=== PATIENT | female | born 1965 ===

== ENCOUNTER 2018-01-02 15:17 | Emergency (ER) | payer SELFPAY ==
[2018-01-02 15:29] VITALS: BMI 26.9
[2018-01-02 15:31] VITALS: BP 118/78; PULSE 72; RESP 17; TEMP 98.8; O2SAT 98
--- NOTE | 2018-01-02 16:11 | C.PDOC ---
History Of Present Illness <FranklynPikny Denton - Last Filed: 01/02/18 17:35> <Vin Alvarez - Last Filed: 01/03/18 00:06> PGY-[address] Alvarez. Patient is a 52 year old female with PMHx of gastritis and chronic gastritis who presents to ED for L rib pain and abdominal pain. Patient states L rib pain is described "muscle inflammation", rated 9/10 and worsens with movement. 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 Treatment with advil mildly improves pain. Patient also complains of constant burning pain to epigastrium for the past 2 weeks. Pain is worst upon awakening in the morning. Patient takes protonix 40mg daily and omeprazole 20mg as needed, which provided no improvement of symptoms. Patient denies trauma, shortness of breath, cough, chest pain, fever, chills, dysuria, urinary frequency, nausea, and diarrhea. ( Pinky Estes P) <Pinky Estes - Last Filed: 01/02/18 17:35> <Vin Alvarez - Last Filed: 01/03/18 00:06> Time Seen by Provider: 01/02/18 15:44 Chief Complaint (Nursing): Abdominal Pain Past Medical History Family History: States: Unknown Family Hx <Pinky Estes - Last Filed: 01/02/18 17:35> - Medical History PMH: Gastritis - Social History Hx Alcohol Use: Yes Hx Substance Use: No <Vin Alvarez - Last Filed: 01/03/18 00:06> Vital Signs: Last Vital Signs Temp 98.8 F 01/02/18 15:30 Pulse 72 01/02/18 15:30 Resp 17 01/02/18 15:30 BP 118/78 01/02/18 15:30 Pulse Ox 98 01/02/18 17:26 Review Of Systems Constitutional: Negative for: Fever, Chills, Sweats Cardiovascular: Negative for: Chest Pain, Palpitations Respiratory: Negative for: Cough, Shortness of Breath Gastrointestinal: Positive for: Vomiting (one episode one week ago), Abdominal Pain (epigastrium), Constipation (chronic). Negative for: Nausea, Diarrhea Genitourinary: Negative for: Dysuria, Frequency, Hematuria Musculoskeletal: Positive for: Other (L rib pain) <Pinky Estes P - Last Filed: 01/02/18 17:35> Physical Exam - Physical Exam Appears: Non-toxic, No Acute Distress Skin: Normal Color, Warm Head: Atraumatic, Normacephalic Chest: Symmetrical, No Deformity Cardiovascular: Rhythm Regular, No Rhythm Irregular, No Friction Rub Respiratory: Normal Breath Sounds, No Decreased Breath Sounds, No Accessory Muscle Use, No Rales, No Rhonchi, No Wheezing Gastrointestinal/Abdominal: Bowel Sounds, Soft, No Tenderness, No Distention, No Guarding, No Rebound Back: No Vertebral Tenderness, Other (Tenderness to palpation of Left ribs 8- 11. Tenderness to palpation and hypertonicity to paraspinal muscles T8-10. No bony step off or deformity. ) Neurological/Psych: Oriented x3, Normal Speech <Pinky Estes P - Last Filed: 01/02/18 17:35> ED Course And Treatment Progress Note: L thoracic pain improved. Reevaluation Time: 17:00 Reassessment Condition: Improved <Audrey Estesissa P - Last Filed: 01/02/18 17:35> O2 Sat by Pulse Oximetry: 98 <Vin Alvarez - Last Filed: 01/03/18 00:06> Medical Decision Making <EstesAudreyPinky P - Last Filed: 01/02/18 17:35> <Vin Alvarez - Last Filed: 01/03/18 00:06> Medical Decision Making: Plan: CXR: No acute disease. (see full report) Toradol, Pepcid (Pinky Estes) Seen and examined with resident. 52 y/o F p/w L sided thoracic pain, tender to palpation without deformity and no abdominal guarding. XR shows no fracture or pneumothorax or consolidation. (Vin Alvarez) Disposition <EstesAudreyPinky P - Last Filed: 01/02/18 17:35> - Disposition Disposition Time: 17:25 <Vin Alvarez - Last Filed: 01/03/18 00:06> - Disposition Referrals: Eris Faulkner MD [Medical Doctor] - Disposition: HOME/ ROUTINE Condition: STABLE Prescriptions: Famotidine [Pepcid] 1 tab PO BID #14 tab Instructions: Muscle Strain Forms: [employer] ([place]), Work Excuse - Clinical Impression Clinical Impression: Back pain
--- NOTE | 2018-01-02 16:47 | RAD ---
Date of service: 01/02/2018 HISTORY: L sided thoracic pain COMPARISON: No prior. TECHNIQUE: Chest PA and lateral FINDINGS: LUNGS: No active pulmonary disease. PLEURA: No significant pleural effusion identified. No pneumothorax apparent. CARDIOVASCULAR: Normal. OSSEOUS STRUCTURES: No significant abnormalities. VISUALIZED UPPER ABDOMEN: Normal. OTHER FINDINGS: None. IMPRESSION: No active disease.
== END 2018-01-02 17:55 | disposition home or self-care (01) ==
LOC: C.ER 15:17
DX: M54.9 Dorsalgia, unspecified (principal)
CPT/HCPCS: 71046; 96372; 99284; J1885